=== PATIENT | male | born 1965 | race Caucasian/White ===

== ENCOUNTER 2019-05-21 10:17 | Emergency (ER) | payer SELFPAY ==
[2019-05-21 10:21] VITALS: PULSE 78
--- NOTE | 2019-05-21 10:21 | DI.RAD.S_ITS ---
PROCEDURE: XR ELBOW LT MIN 3V INDICATIONS: severe pain after fall, decrease range of motion to pain TECHNIQUE: 3 views of the elbow were acquired. COMPARISON: [facility], CR, XR WRIST LT MIN 3V, 05/21/2019, 10:30. FINDINGS: Bones: No displaced elbow fracture is evident. There is no dislocation. No suspicious osseous lesions or significant degenerative changes are evident. Soft tissues: No definite elbow joint effusion. No suspicious soft tissue calcifications. IMPRESSION: No displaced fractures of the elbow. Dictated by: Endy Arizmendi M.D. on 05/21/2019 at 9:52 Approved by: Endy Arizmendi M.D. on 05/21/2019 at 10:10
--- NOTE | 2019-05-21 10:21 | DI.RAD.S_ITS ---
PROCEDURE: XR WRIST LT MIN 3V INDICATIONS: severe pain after fall, decreased range of motion TECHNIQUE: 3 views of the wrist were acquired. COMPARISON: [facility], CR, XR ELBOW LT MIN 3V, 05/21/2019, 10:30. FINDINGS: Bones: No displaced fractures or dislocations are evident involving the left wrist. No suspicious osseous lesions are evident. Moderate to severe degenerative changes of the wrist are most pronounced involving the basal joint of the thumb. Soft tissues: No suspicious soft tissue calcifications. Soft tissue swelling about the wrist is present. No radiopaque foreign bodies. IMPRESSION: No displaced wrist fractures. If there is high clinical concern for an acute fracture, please consider CT for further evaluation. Dictated by: Endy Arizmendi M.D. on 05/21/2019 at 10:10 Approved by: Endy Arizmendi M.D. on 05/21/2019 at 10:11
--- NOTE | 2019-05-21 10:24 | PC.NURSE ---
Boom reports falling off a 6ft ladder yesterday landing on his left arm. Denies LOC, denies any other injury at this time. Ambulatory into ER. Hasn't taken anything for his pain since fall yesterday.
[2019-05-21 10:25] VITALS: BP 141/91; PULSE 78; RESP 20; TEMP 36.8; O2SAT 98; BMI 23.1
--- NOTE | 2019-05-21 10:26 | ED.UPPEXIN ---
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 He was a few rungs up on a ladder and fell onto his wrist. He denies any head neck or back pain. He has no chest pain or shortness of breath. He denies any use of alcohol or street drugs. He has full recall of the event. He has significant pain in his left wrist which is made worse with any range of motion or palpation. He denies numbness, tingling or weakness. Additionally he has some pain in his left elbow as well. He has not taken any Tylenol or Motrin for the pain MD complaint: injury to: left Other Extremity Injury: Left: hand Place: home Severity: moderate Relieving factors: rest Exacerbating factors: movement of extremity Context: fall and direct blow Associated symptoms: denies other symptoms Related Data Allergies Allergy/AdvReac Type Severity Reaction Status Date / Time codeine Allergy Unknown Verified 05/21/19 10:25 ketorolac [From Toradol] Allergy Unknown Verified 05/21/19 10:25 Penicillins Allergy Unknown Verified 05/21/19 10:25 roger pepper Allergy Unknown Uncoded 05/21/19 10:25 Review of Systems Constitutional Constitutional: Denies chills, Denies fatigue, Denies fever(s), Denies frequent falls, Denies lethargy and Denies weakness Eyes Eyes: Denies change in vision, Denies eye discharge, Denies irritation and Denies loss of vision ENT Ears, Nose, Mouth, and Throat: Denies change in voice, Denies dizziness, Denies neck pain, Denies sore throat and Denies throat swelling Cardiovascular Cardiovascular: Denies chest pain, Denies irregular heart rhythm, Denies lightheadedness, Denies palpitations, Denies dyspnea, Denies dyspnea on exertion and Denies orthopnea Respiratory Respiratory: Denies cough, Denies dyspnea, Denies dyspnea on exertion and Denies wheezing Gastrointestinal Gastrointestinal: Denies abdominal pain, Denies change in bowel habits, Denies diarrhea, Denies nausea and Denies vomiting Genitourinary Genitourinary: Denies hematuria, Denies flank pain, Denies urinary incontinence and Denies urinary urgency Musculoskeletal Musculoskeletal: Denies back pain, Reports joint swelling, Reports limited range of motion, Denies muscle weakness, Denies neck pain, Denies numbness and Denies tingling Integumentary/Breasts Skin/Breast: Denies pruritus, Denies erythema, Denies rash and Denies wounds Neurologic Neurologic: Denies behavioral changes, Denies confusion, Denies dizziness, Denies frequent falls, Denies loss of vision, Denies numbness, Denies tingling and Denies weakness Psychiatric Psychiatric: Denies anxiety, Denies behavioral changes, Denies confusion, Denies depression, Denies homicidal ideation and Denies suicidal ideation Endocrine Endocrine: Denies fatigue, Denies flushing and Denies palpitations Hematologic/Lymphatic Hematologic/Lymphatic: Denies easy bruising Allergic/Immunologic Allergic/Immunologic: Denies urticaria, Denies throat swelling and Denies wheezing Patient History Social History Smoking Status: Current every day smoker Exam Narrative Exam Narrative: GENERAL: [54] year old patient appears stated age. Well-nourished, well-developed patient, in mild distress. Obviously uncomfortable HEAD: Atraumatic. Normocephalic. EYES: Pupils equal round and reactive. Extraocular motions intact. No scleral icterus. No injection or drainage. ENT: Nose without bleeding, purulent drainage. Throat without erythema, tonsillar hypertrophy or exudate. Airway patent. NECK: Trachea midline. Non tender CARDIOVASCULAR: Regular rate and rhythm without murmurs, gallops, or rubs. RESPIRATORY: Clear to auscultation. Breath sounds equal bilaterally. No wheezes, rales, or rhonchi. GASTROINTESTINAL: Abdomen soft, non-tender, nondistended. EXTREMITIES: Patient has decreased range of motion of the left wrist due to pain. There is tenderness to palpation along the dorsal aspect of his wrist. It is closed and neurovascularly intact. There is minimal swelling on the dorsum of the rest. Radial pulse and cap refill are normal and intact. Patient does have minimal pain of the left elbow with flexion, extension as well as pronation and supination. BACK: Nontender without deformity or crepitance. No flank tenderness. NEURO: AOx3. SKIN: No rash or erythema of visible areas Initial Vital Signs Initial Vital Signs: Vital Signs Pulse Rate 78 05/21/19 10:21 Course Course Course Narrative: Patient was seen immediately upon arrival in the room and evaluated by myself. Images were ordered. I spoke with the patient's about my interpretation of the x-rays and told him I didn't see anything obvious, at this point time he became quite upset yelled at me, thrusting his wrist up saying don't you see how messed up this looks. I told him now that I know I will not have to sedate him for reduction on happy to give him some pain medications while we wait for the radiology's read and decide whether not more advanced imaging is needed. He was given 2 hydrocodone and then immediately left with his and no ability to talk him out of it or discuss any other plans. Images have been officially interpreted and no fracture noted Orders Ordered: ED Orders 05/21/19 10:21 XR elbow LT min 3V Stat XR wrist LT min 3V Stat Discontinued Medications Hydrocodone Bitart/Acetaminophen ([place] 5/325) 2 tab PO NOW ONE Stop: 05/21/19 11:04 Last Admin: 05/21/19 11:07 Dose: 2 tab Documented by: KATHLEEN Vital Signs Vital signs: Vital Signs - 8 hr 05/21/19 10:21 Pulse Rate [Left Brachial] 78 MDM - Extremity Injury (Upper) Imaging Data Extremity x-ray #1: Radiologist's Impression: [address] [address] XRay Report Signed Patient: Ruben Payan [facility]#: [id number] : 1965Acct:[id number] Age/Sex: 54 / MDate of Service: 05/21/19 Loc: ED Accession Number: [id number] Procedure: XR elbow LT min 3V Ordering Provider: Lane Mccann D.O. PROCEDURE: XR ELBOW LT MIN 3V INDICATIONS: severe pain after fall, decrease range of motion to pain TECHNIQUE: 3 views of the elbow were acquired. COMPARISON: [facility], , XR WRIST LT MIN 3V, 05/21/2019, 10:30. FINDINGS: Bones: No displaced elbow fracture is evident. There is no dislocation. No suspicious osseous lesions or significant degenerative changes are evident. Soft tissues: No definite elbow joint effusion. No suspicious soft tissue calcifications. IMPRESSION: No displaced fractures of the elbow. Dictated by: Endy Arizmendi M.D. on 05/21/2019 at 9:52 Approved by: Endy Arizmendi M.D. on 05/21/2019 at 10:10 Extremity x-ray #2: Radiologist's Impression: [address] [address] XRay Report Signed Patient: Ruben Payan [facility]#: [id number] : 1965Acct:[id number] Age/Sex: 54 / MDate of Service: 05/21/19 Loc: ED Accession Number: [id number] Procedure: XR wrist LT min 3V Ordering Provider: Lane Mccann D.O. PROCEDURE: XR WRIST LT MIN 3V INDICATIONS: severe pain after fall, decreased range of motion TECHNIQUE: 3 views of the wrist were acquired. COMPARISON: [facility], CR, XR ELBOW LT MIN 3V, 05/21/2019, 10:30. FINDINGS: Bones: No displaced fractures or dislocations are evident involving the left wrist. No suspicious osseous lesions are evident. Moderate to severe degenerative changes of the wrist are most pronounced involving the basal joint of the thumb. Soft tissues: No suspicious soft tissue calcifications. Soft tissue swelling about the wrist is present. No radiopaque foreign bodies. IMPRESSION: No displaced wrist fractures. If there is high clinical concern for an acute fracture, please consider CT for further evaluation. Dictated by: Endy Arizmendi M.D. on 05/21/2019 at 10:10 Approved by: Endy Arizmendi M.D. on 05/21/2019 at 10:11 Discharge Plan Departure Patient Disposition: Left Against Medical Advice Clinical Impression: Left against medical advice Discharge Date/Time: 05/21/19 11:15 Stand Alone Forms: Against Medical Advice
--- NOTE | 2019-05-21 10:47 | PC.NURSE ---
patient significant other arrived, this person stepped out asking why hasn't he been seen, patient significant other then says dont you have more than 1 dr i replied we only have one at this time. I made patient rn aware, Esther in room to see patient and remind him that dr davis had been in the room and xray was done. and she would let dr davis know about patient pain.
--- NOTE | 2019-05-21 10:57 | PC.NURSE ---
Patient told registration they were going to leave if they didn't get something for pain. Provider aware
[2019-05-21] MEDS: HYDROCODONE/ACET 5/325 TABLET 2 TAB PO (11:07)
--- NOTE | 2019-05-21 11:12 | PC.NURSE ---
Patient and walked out of room you can just mail us the paper work, he is hurting I am taking him to another hospital Attempted to have patient sign VDC form put refused.
== END 2019-05-21 11:15 | disposition left against medical advice (07) ==
PROVIDERS: Emergency Provider Emergency Medicine
DX: S69.92XA Unspecified injury of left wrist, hand and finger(s), initial encounter (principal); W11.XXXA Fall on and from ladder, initial encounter
CPT/HCPCS: 73080; 73110; 99283